=== PATIENT | female | born 1995 | race American Indian/Alaskan Native ===

== ENCOUNTER 2017-06-16 17:37 | Emergency (ER) | payer SELFPAY ==
--- NOTE | 2017-06-17 00:37 | Emergency Department Report ---
- General Chief Complaint: Sore Throat Stated Complaint: WARTS/VAGINAL AREA Time Seen by Provider: 06/17/17 00:28 Source: patient Mode of arrival: Ambulatory Limitations: No Limitations - History of Present Illness MD Complaint: cough, sore throat -: week(s) (TWO) Severity: moderate Associated Symptoms: denies: fever, chills - Related Data Previous Rx's Medication Instructions Recorded Last Taken Type Amoxicillin [Amoxicillin TAB] 875 mg PO BID #20 tablet 06/17/17 Unknown Rx Allergies Allergy/AdvReac Type Severity Reaction Status Date / Time No Known Allergies Allergy Unverified 06/16/17 18:00 ED Review of Systems ROS: Stated complaint: WARTS/VAGINAL AREA Other details as noted in HPI Comment: All other systems reviewed and negative Constitutional: denies: chills, fever ENT: throat pain. denies: hearing loss, congestion Respiratory: cough Cardiovascular: chest pain Gastrointestinal: denies: abdominal pain, nausea, vomiting ED Past Medical Hx - Past Medical History Previous Medical History?: No - Surgical History Past Surgical History?: No - Social History Smoking Status: Current Some Day Smoker Substance Use Type: Alcohol - Medications Home Medications: Home Medications Medication Instructions Recorded Confirmed Last Taken Type Amoxicillin [Amoxicillin TAB] 875 mg PO BID #20 tablet 06/17/17 Unknown Rx ED Physical Exam - General Limitations: No Limitations General appearance: alert, in no apparent distress - Eye Eye exam: Present: normal appearance - Expanded ENT Exam Expanded Throat exam: Positive: other (pharyngeal erythema). Negative: normal inspection , tonsillar erythema, tonsillomegaly, tonsillar exudate - Neck Neck exam: Present: normal inspection. Absent: tenderness, meningismus, full ROM - Respiratory Respiratory exam: Present: normal lung sounds bilaterally. Absent: respiratory distress, wheezes, rales - Cardiovascular Cardiovascular Exam: Present: regular rate - GI/Abdominal GI/Abdominal exam: Present: soft. Absent: distended, tenderness, guarding, rebound ED Course Vital Signs 06/16/17 17:53 Temperature 99.3 F Pulse Rate 79 Respiratory 16 Rate Blood Pressure 117/75 O2 Sat by Pulse 100 Oximetry Critical care attestation.: If time is entered above; I have spent that time in minutes in the direct care of this critically ill patient, excluding procedure time. ED Disposition Clinical Impression: Pharyngitis Disposition: DC-01 TO HOME OR SELFCARE Is pt being admited?: No Does the pt Need Aspirin: No Condition: Stable Instructions: Pharyngitis (ED) Prescriptions: Amoxicillin [Amoxicillin TAB] 875 mg PO BID #20 tablet Referrals: PRIMARY CARE, [Primary Care Provider] - 3-5 Days
[2017-06-17 00:42] VITALS: BP 112/67
== END 2017-06-17 00:46 | disposition home or self-care (01) ==
LOC: ED 17:37
DX: J02.9 Acute pharyngitis, unspecified (principal)
CPT/HCPCS: 99282